=== PATIENT | male | born 1955 | race Caucasian/White ===

== ENCOUNTER → 2016-08-29 | Outpatient (CLI) | payer BC ==
[2016-08-29 10:36] LABS: HEMATOCRIT 46.7 % (42.0-52.0); HEMOGLOBIN 16.4 g/dL (14.0-18.0); MEAN CORPUSCULAR HEMOGLOBIN 30.5 PG (27-31); MEAN CORPUSCULAR HGB CONC 35.1 g/dL (33-37); MEAN PLATELET VOLUME 11.2 FL (7.4-12.2); RDW COEFFICIENT OF VARIATION 13.2 % (11.5-14.5); RED BLOOD COUNT 5.38 10^6/uL (4.70-6.10); WHITE BLOOD COUNT 5.19 10^3/uL (4.8-10.8)
[2016-08-29 10:58] LABS: ASPARTATE AMINO TRANSFERASE 36 IU/L (21-57); BILIRUBIN,TOTAL 0.8 mg/dL (0.3-1.2); BLOOD UREA NITROGEN 16 mg/dL (7-22); BUN/CREATININE RATIO 17.77 (6-20); CALCIUM 9.6 mg/dL (8.7-10.7); CHLORIDE 105 meq/L (98-112); CREATININE 0.9 mg/dL (0.70-1.50); EST GLOMERULAR FILTRATION > 60 (>60 ml/min/1.73m(2)); GLUCOSE 101 mg/dL (78-110); HDL CHOLESTEROL 52 mg/dL (40-150); SODIUM 139 meq/L (135-145); TRIGLYCERIDES 65 mg/dL (44-200)
[2016-08-29 11:20] LABS: FREE T4 (FREE THYROXINE) 0.94 ng/dL (0.93-1.71)
== END ==
LOC: LAB 10:18
PROVIDERS: ATTEND Family Medicine
DX: Z00.00 Encounter for general adult medical examination without abnormal findings (principal); R73.9 Hyperglycemia, unspecified; E78.00 Pure hypercholesterolemia, unspecified; M10.9 Gout, unspecified
CPT/HCPCS: 36415; 80053; 80061; 83036; 84439; 84443; 84550; 85027